=== PATIENT | male | born 1995 | race Caucasian/White ===

== ENCOUNTER 2016-06-01 17:40 | Observation (INO) | payer OTHER ==
[~2016-06-01 17:40] MED LIST: ACETAMINOP PO; HYDROCODON-ACET15 M1 PO; PROAIR HFA8.5 GM INH; [UNRECOGNIZED DRUG - OTHER]
[2016-06-01] MEDS ORDERED: SERTRALINE HCL100 M5 PO (18:15)
[2016-06-01] MEDS ORDERED: AUGMENTIN 500-1 EAC2 (18:16)
[2016-06-01 19:29] LABS: BASO % 0.6 % (0-2); EOS % 2.3 % (0-7); EOSINOPHIL ABSOLUTE COUNT 0.2 tho/cmm (0.0-0.7); HCT-HEMATOCRIT 41.5 % (36.0-53.5); HGB-HEMOGLOBIN 14.6 gm/dl (13.5-17.0); IMMATURE GRANULOCYTES ABSOLUTE 0.03 tho/cmm (0-0.03); IMMATURE GRANULOCYTES PERCENT 0.4 % (0-0.3); LYMPH % 31.3 % (20-45); LYMPH ABSOLUTE COUNT 2.2 tho/cmm (0.8-4.5); MCH (MEAN CORPUSCULAR HGB) 30.1 pg (28.0-32.0); MCHC MEAN CORPUSCULAR HGB CONC 35.2 % (32.0-36.0); MCV (MEAN CELL VOLUME) 85.6 fl (82.0-96.0); MEAN PLATELET VOLUME 10.1 cmc (9.4-12.4); MONO % 11.6 % (0-12); MONOCYTE ABSOLUTE COUNT 0.8 tho/cmm (0.0-1.2); NEUTROPHIL ABSOLUTE COUNT 3.7 tho/cmm (1.6-8.0); NEUTROPHIL-AUTOMATED 3.7 tho/cmm (1.6-8.0); NEUTROPHILS % 53.8 % (40-80); PLATELET COUNT 189 tho/cmm (150-450); RED BLOOD COUNT 4.85 mil/cmm (4.40-5.70); WHITE BLOOD COUNT 6.9 tho/cmm (4.0-10.0)
[2016-06-01 19:41] LABS: ANION GAP 13 mmol/L (0-20); BLOOD UREA NITROGEN 10 mg/dl (6-24); CALCIUM 8.9 mg/dl (8.5-10.5); CARBON DIOXIDE-VENOUS 27 mmol/L (22-32); CHLORIDE 106 mmol/l (96-110); CREATININE 0.87 mg/dl (0.60-1.30); GLUCOSE 86 mg/dL (70-110); SODIUM 142 mmol/L (135-145); eGFR VALUE FOR BLACK >90 mL/Min
[2016-06-01 21:06] LABS: URINE APPEARANCE CLEAR; URINE BILIRUBIN NEGATIVE (NEG); URINE BLOOD NEGATIVE (NEG); URINE COLOR YELLOW; URINE GLUCOSE (UA) NEGATIVE (NEG); URINE KETONE NEGATIVE (NEG); URINE LEUKOCYTE ESTERASE NEGATIVE (NEG); URINE NITRITE NEGATIVE (NEG); URINE PROTEIN NEGATIVE (NEG); URINE SPECIFIC GRAVITY 1.005 (1.003-1.030)
[2016-06-02 05:28] LABS: BASO % 0.6 % (0-2); EOS % 3.7 % (0-7); EOSINOPHIL ABSOLUTE COUNT 0.2 tho/cmm (0.0-0.7); HCT-HEMATOCRIT 38.8 % (36.0-53.5); HGB-HEMOGLOBIN 13.4 gm/dl (13.5-17.0); IMMATURE GRANULOCYTES ABSOLUTE 0.05 tho/cmm (0-0.03); LYMPH % 35.3 % (20-45); LYMPH ABSOLUTE COUNT 1.8 tho/cmm (0.8-4.5); MCH (MEAN CORPUSCULAR HGB) 29.9 pg (28.0-32.0); MCHC MEAN CORPUSCULAR HGB CONC 34.5 % (32.0-36.0); MCV (MEAN CELL VOLUME) 86.6 fl (82.0-96.0); MONOCYTE ABSOLUTE COUNT 0.6 tho/cmm (0.0-1.2); NEUTROPHIL ABSOLUTE COUNT 2.5 tho/cmm (1.6-8.0); NEUTROPHIL-AUTOMATED 2.5 tho/cmm (1.6-8.0); NEUTROPHILS % 47.4 % (40-80); PLATELET COUNT 178 tho/cmm (150-450); RED BLOOD COUNT 4.48 mil/cmm (4.40-5.70); RED CELL DISTRIBUTION WIDTH 12.1 % (12.4-16.4); WHITE BLOOD COUNT 5.2 tho/cmm (4.0-10.0)
[2016-06-02] MEDS ORDERED: ANUSOL TOP (10:07)
[2016-06-02] MEDS ORDERED: COLACE100 M1 PO ×2 (10:36→10:47)
[2016-06-02] MEDS ORDERED: NORCO 5-325 TA1 EACH PO (10:47)
[2016-06-02] MEDS ORDERED: MIRALAX17 G2 PO (10:48)
== END 2016-06-02 11:10 ==
LOC: EDMED 17:40 → EMR2 06-02 00:19 → CAR1 06-02 00:24
PROVIDERS: Emergency Medicine; Registered Nurse; ADMIT Hospitalist
DX: K62.89 Other specified diseases of anus and rectum (principal); K52.9 Noninfective gastroenteritis and colitis, unspecified; F32.9 Major depressive disorder, single episode, unspecified; J45.909 Unspecified asthma, uncomplicated; Z88.1 Allergy status to other antibiotic agents; Z91.018 Allergy to other foods; Z79.899 Other long term (current) drug therapy; Z98.890 Other specified postprocedural states
CPT/HCPCS: G0378; J2270; J7030; Q9967